=== PATIENT | female | born 1995 | race Caucasian/White ===

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

== ENCOUNTER 2017-08-16 19:55 | Emergency (ER) | payer OTHER ==
[~2017-08-16] VITALS: Ht 165.1 cm; Wt 74.7 kg
[~2017-08-16 19:55] MED LIST changes: +CEFTIN250 MG PO; +MOTRIN600 MG PO
[2017-08-16 23:32] LABS: ADD MIUA? YES; BILIRUBIN NEGATIVE; BLOOD NEGATIVE; COLOR YELLOW ((YELLOW)); GLUCOSE (STRIP) NEGATIVE; KETONES NEGATIVE; LEUKOCYTES NEGATIVE; NITRITE NEGATIVE; PROTEIN (STRIP) 30; SPECIFIC GRAVITY 1.027 (1.000-1.030)
[2017-08-16 23:34] LABS: UCUL ADDED? NO
[2017-08-16 23:37] LABS: HEMATOCRIT 28.1 % (36.0-46.0); MCH 32.5 PG (29.0-34.0); MCHC 34.9 G/DL (30.0-36.0); MEAN PLAT.VOLUME 10.6 uM^3 (9.5-12.4); PLATELET COUNT 211 K/uL (156-360); RBC DIS.WIDTH-CV 13.4 % (11.8-14.6); RBC DIS.WIDTH-SD 45.5 % (39-53); RED BLOOD COUNT 3.02 M/uL (3.80-5.20); WHITE BLOOD COUNT 7.8 K/uL (4.1-10.2)
[2017-08-16 23:41] LABS: BACTERIA RARE /HPF; EPITHELIAL CELLS RARE /HPF; MUCUS TRACE /LPF; RED BLOOD CELLS 0-5 /HPF (0-5); WHITE BLOOD CELLS 0-5 /HPF (0-5)
[2017-08-16 23:43] LABS: CHLORIDE 108 mEq/L (99-109); POTASSIUM 3.7 mEq/L (3.7-5.4)
[2017-08-16 23:44] LABS: SODIUM 137 mEq/L (136-147)
[2017-08-16 23:46] LABS: GLUCOSE 87 mg/dL (70-99)
[2017-08-16 23:47] LABS: ANION GAP 7 MEQ/L (2-14)
[2017-08-16 23:48] LABS: TOTAL BILIRUBIN 0.6 mg/dL (0.0-1.0)
[2017-08-16 23:49] LABS: ALKALINE PHOSPHATASE 114 IU/L (3-129); GFR ESTIMATE (CALCULATED) > 59 mL/min/
[2017-08-16 23:50] LABS: UREA NITROGEN (BUN) 10 mg/dL (9-23)
[2017-08-16 23:58] VITALS: BP 105/70
== END 2017-08-17 00:02 | disposition home or self-care (01) ==
LOC: EME 19:55
PROVIDERS: Physician Assistant
DX: O99.613 Diseases of the digestive system complicating pregnancy, third trimester (principal); S36.63XA Laceration of rectum, initial encounter; K92.1 Melena; K59.00 Constipation, unspecified; Z3A.37 37 weeks gestation of pregnancy; X58.XXXA Exposure to other specified factors, initial encounter
CPT/HCPCS: 80053; 81003; 85027; 99281; 99284

== ENCOUNTER 2017-08-21 16:20 | Inpatient (IN) | payer OTHER ==
[2017-08-21] VITALS (7 sets, daily range): BP systolic 116–122; BP diastolic 60–76
[~2017-08-21] VITALS: Ht 165.1 cm; Wt 73.0 kg
[2017-08-21 18:02] LABS: EOSINOPHIL (%) 0.2 % (0-5); IMMATURE GRANULOCYTE (%) 0.5 % (0.0-0.7); IMMATURE GRANULOCYTE COUNT 0.1 K/uL; INSTRUMENT ABS NEUTROPHIL CT 7.2 K/uL; LYMPHOCYTE COUNT 1.6 K/uL (1.0-2.8); MCH 31.6 PG (29.0-34.0); MCV 92.9 FL (83-99); MEAN PLAT.VOLUME 10.4 uM^3 (9.5-12.4); MONOCYTE (%) 6.6 % (3-12); MONOCYTE COUNT 0.6 K/uL (0-0.8); NEUTROPHIL (%) 75.4 % (45-76); NEUTROPHIL COUNT 7.2 K/uL (1.8-6.4); PLATELET COUNT 200 K/uL (156-360); RBC DIS.WIDTH-CV 13.4 % (11.8-14.6); RED BLOOD COUNT 3.23 M/uL (3.80-5.20); WHITE BLOOD COUNT 9.5 K/uL (4.1-10.2)
[2017-08-21] MEDS ORDERED: EXPECTA PRENAT1 EACH PO (18:21)
[2017-08-21] MEDS ORDERED: IRON18 MG PO (18:21)
[2017-08-22] VITALS (24 sets, daily range): BP systolic 106–153; BP diastolic 55–71
[2017-08-22] MEDS ORDERED: MOTRIN800 MG PO (18:49)
[2017-08-23 07:39] VITALS: BP 100/56
[2017-08-23 14:56] VITALS: BP 108/67
[2017-08-24 07:41] VITALS: BP 101/57
[2017-08-24 14:32] VITALS: BP 110/59
== END 2017-08-24 15:37 | disposition home or self-care (01) | DRG 775 ==
LOC: LDRP-OP → 2WEST 16:23 → LDRP-OP 10-06 08:50
PROVIDERS: Advanced Practice Midwife
DX: O41.03X0 Oligohydramnios, third trimester, not applicable or unspecified (principal); Z3A.38 38 weeks gestation of pregnancy; Z37.0 Single live birth
CPT/HCPCS: 85025; C1755; G0378; J0595; J3010; J7120